=== PATIENT | female | born 1950 | race Caucasian/White ===

== ENCOUNTER 2023-10-15 11:52 | Outpatient (CLI) | payer MEDICARE, BC, SELFPAY ==
[2023-10-16 00:40] LABS: Chlamydia DNA Amplified* NOT DETECTED (No Detected); GC DNA Amplified* NOT DETECTED (No Detected)
== END 2023-10-15 11:53 | disposition home or self-care (01) ==
PROVIDERS: Visit Provider Family Medicine
DX: Z11.3 Encounter for screening for infections with a predominantly sexual mode of transmission (principal); E78.00 Pure hypercholesterolemia, unspecified
CPT/HCPCS: 80053; 80061; 86592; 86703; 86803; 87491; 87591

== ENCOUNTER 2024-03-13 10:24 | Outpatient (CLI) | payer MEDICARE, BC, SELFPAY | END 2024-03-13 10:25 | disposition home or self-care (01) | LOC: NFLDREF 03-14 05:28 | PROVIDERS: PCP Family Medicine; Referring Provider Family Medicine; Visit Provider Family Medicine | DX: R30.0 Dysuria (principal); N89.8 Other specified noninflammatory disorders of vagina; B96.4 Proteus (mirabilis) (morganii) as the cause of diseases classified elsewhere | CPT/HCPCS: 87086; 87186 ==

== ENCOUNTER 2024-03-24 11:21 | Outpatient (CLI) | payer MEDICARE, BC, SELFPAY | END 2024-03-24 11:22 | disposition home or self-care (01) | LOC: NFLDREF 03-26 07:27 | PROVIDERS: PCP Family Medicine; Referring Provider Family Medicine; Visit Provider Family Medicine | DX: N39.0 Urinary tract infection, site not specified (principal) | CPT/HCPCS: 87086 ==

== ENCOUNTER 2024-07-24 11:22 | Outpatient (CLI) | payer MEDICARE, BC, SELFPAY | END 2024-07-24 11:23 | disposition home or self-care (01) | PROVIDERS: PCP Family Medicine; Visit Provider Family Medicine | DX: E03.9 Hypothyroidism, unspecified (principal); E20.9 Hypoparathyroidism, unspecified; E78.00 Pure hypercholesterolemia, unspecified | CPT/HCPCS: 80053; 83970; 84443 ==

== ENCOUNTER 2025-01-26 11:23 | Outpatient (CLI) | payer MEDICARE, BC, SELFPAY | END 2025-01-26 11:24 | disposition home or self-care (01) | PROVIDERS: PCP Family Medicine; Visit Provider Family Medicine | DX: E03.9 Hypothyroidism, unspecified (principal); E20.9 Hypoparathyroidism, unspecified; Z01.818 Encounter for other preprocedural examination; R30.0 Dysuria | CPT/HCPCS: 80053; 83970; 84443; 87086 ==